=== PATIENT | female | born 1990 | race Caucasian/White ===

== ENCOUNTER 2020-04-28 19:45 | Emergency (ER) | payer OTHER ==
[~2020-04-28] VITALS: Ht 170.2 cm; Wt 99.8 kg
[2020-04-28 20:08] VITALS: BP 142/82
--- NOTE | 2020-04-28 20:08 | NUR ---
provided urine sample .
--- NOTE | 2020-04-28 20:10 | NUR ---
triaged and waiting in lobby.
--- NOTE | 2020-04-28 21:43 | NUR ---
Dr. Snow examining patient.
[2020-04-28] MEDS ORDERED: SULFAMETH/TRIMETH DS 800/160MG 1 TAB PO ONE (21:55)
[2020-04-28] MEDS ORDERED: PHENAZOPYRIDINE 100 MG TAB PO ONE (21:55)
--- NOTE | 2020-04-28 22:34 | NUR ---
Patient discharged with v/s stable. Written and verbal after care instructions given and explained. Patient alert, oriented and verbalized understanding of instructions. Ambulatory with steady gait. All questions addressed prior to discharge. ID band removed. Patient advised to follow up with PMD. Rx of BACTRIM, PYRIDIUM given. Patient educated on indication of medication including possible reaction and side effects. Opportunity to ask questions provided and answered.
[2020-04-28 22:35] VITALS: BP 142/82
== END 2020-04-28 22:34 | disposition home or self-care (01) ==
LOC: MED 19:45
DX: N39.0 Urinary tract infection, site not specified (principal); J45.909 Unspecified asthma, uncomplicated
CPT/HCPCS: 81002; 81025; 99283